=== PATIENT | male | born 1940 | race Caucasian/White ===

== ENCOUNTER 2025-09-01 21:56 | Emergency (ER) | payer MEDICARE, OTHER, SELFPAY ==
[2025-09-01 22:01] VITALS: BP 133/103
[2025-09-01 22:19] VITALS: BP 162/73; BMI 20.2
[2025-09-01 23:00] VITALS: BP 158/72
--- NOTE | 2025-09-01 23:35 | ED.GENMED ---
History of Present Illness
General
Chief Complaint: Fall
Time Seen by Provider: 09/01/25 23:05
History of Present Illness
History of Present Illness:
84-year-old male with history of dementia presents to the emergency department for evaluation of right knee pain, slipped while going up the stairs and struck his knee on an adjacent step. No head injury. Fall was witnessed by spouse. At his
baseline mentation currently. He has fallen several times recently due to an unstable gait. Family is not concerned for his safety in the immediate future
Past History
Past History
ED Past Medical History: Arrthythmia (Atrial fibrillation), HTN and Other (psoiriasis; kidney cancer, bladder Ca, dementia)
ED Past Surgical History: Urological (nephrectomy R (partial()
Social History
Tobacco: Former smoker
Alcohol: Occasional
Drug: None
Personal:
Living: with family
Employment: Retired
Family History
Family History: Other (Reviewed and Noncontributory)
Review of Systems
Review of Systems
Allergies reviewed?: Yes
All Other Systems: ROS reviewed and negative except as documented in HPI and ROS
Phy Exam
Physical Exam
Physical Exam:
GEN: Well appearing, NAD, WDWN
HEENT: Oral mucosa moist, no scleral icterus
Cardiac: Regular rate
Lung: No respiratory distress, no tachypnea
MSK: No gross deformity or injuries. Minor swelling to the right medial knee, status post bilateral TKA. Right knee range of motion is normal, left knee range of motion normal
Skin: Good color, no pallor or jaundice, no rashes
Neuro: AO x3, moves all extremities freely
Psych: Calm, cooperative
Course
Orders/Labs/Results
Orders:
Orders
09/01/25 23:09
CR Knee- Right 4 Or More View* Urgent
Comment:
Reason For Exam: fall R knee pain
Vital Signs
Initial and Last Documented VS:
Initial Vital Signs
Temp Pulse Resp BP Pulse Ox
98.5 F 60 18 133/103 100
09/01/25 22:01 09/01/25 22:01 09/01/25 22:01 09/01/25 22:01 09/01/25 22:01
Last Documented Vital Signs
Temp Pulse Resp BP Pulse Ox
98.0 F 49 17 158/72 97
09/01/25 22:19 09/01/25 23:24 09/01/25 23:00 09/01/25 23:00 09/01/25 23:37
MDM/Problems Addressed
MDM/Problems Addressed:
Imaging unremarkable for fracture, hardware appears intact with no disruption. Discharged in stable condition. Noted to be in a bradycardic A-fib on telemetry however patient has history of A-fib and is clinically stable otherwise
*Pulse Oximetry
SaO2: 97
Oxygen Mode of Delivery: Room air
Patient hypoxic: no
*Critical Care Note
Total Time (30-74mins, 75-104mins- exclusive of procedures): Not Applicable
ED Attending Note
-
Portions of this chart may have been created with voice recognition software.� Occasional wrong word or��sound alike� substitutions may have occurred due to the inherent limitations of voice recognition software.
Discharge Plan
Departure
Patient Disposition: Home (Routine Discharge)
Date of Disposition: 09/01/25
Time of Disposition: 23:37
Patient with high blood pressure during this ER visit?: No
Discharge Problem:
Contusion of knee, right
Instructions: Contusion (DC)
Prescriptions:
No Action
propranolol 20 MG tablet
60 mg PO BID
fluticasone propionate 1 SPRAY spray,suspension
2 spray intranasal DAILY
tamsulosin 0.4 MG capsule
0.4 mg PO HS
cyanocobalamin (vitamin B-12) 1,000 MCG tablet
1,000 mcg PO DAILY Qty: 30 0RF
Lisinopril
20 mg PO DAILY
Pravastatin Sodium
20 mg PO HS
inulin-chromium picolinate [Fiber Gummies (with chromium)] 1 EACH tablet,chewable
2 ea PO DAILY
Vitamin D2
50,000 units PO WEEKLY
Xarelto:
1 tab PO DAILY
Referrals:
Aurelio Castillo MD [Family Provider, [facility]]
Activity Restrictions/Additional Instructions:
X-rays show no evidence for fracture
Your heart rate does occasionally drop into the 40s and upper 30s but this is likely due to atrial fibrillation. Please follow-up with your materials director to discuss this further as you may warrant a change in some of your medications
Interventions
Interventions:
*Risk Screen - Suicide Last Done: 09/01/25 22:24
*General Assessment Last Done: 09/01/25 22:01
*Neglect/Abuse Screening Last Done: 09/01/25 22:01
*ED- Fall Risk Assessment Last Done: 09/01/25 22:24
*ED COVID-19 Vaccine History Last Done: 09/01/25 22:24
*ED Influenza Vaccine History Last Done: 09/01/25 22:24
ED-Musculoskeletal Assessment Last Done: 09/01/25 22:29
ED- Neurological Assessment Last Done: 09/01/25 22:24
ED-Skin Assessment Last Done: 09/01/25 22:24
Discharge Date and Time
Print Language: WELSH
== END 2025-09-02 00:02 | disposition home or self-care (01) ==
LOC: EMR 21:56
PROVIDERS: EMERGENCY PHYSICIAN Emergency Medicine; FAMILY PHYSICIAN Family Medicine
DX: S80.01XA Contusion of right knee, initial encounter (principal); W01.10XA Fall on same level from slipping, tripping and stumbling with subsequent striking against unspecified object, initial encounter; I48.91 Unspecified atrial fibrillation; I10 Essential (primary) hypertension; F03.90 Unspecified dementia, unspecified severity, without behavioral disturbance, psychotic disturbance, mood disturbance, and anxiety; Z85.51 Personal history of malignant neoplasm of bladder; Z85.528 Personal history of other malignant neoplasm of kidney; Z87.891 Personal history of nicotine dependence; Z90.5 Acquired absence of kidney; Z96.651 Presence of right artificial knee joint
CPT/HCPCS: 99283; 73564